=== PATIENT | female | born 1975 | race Caucasian/White ===

== ENCOUNTER → 2021-07-29 | Outpatient (CLI) | payer OTHER | LOC: RAD 12:03 | PROVIDERS: ATTEND Nurse Practitioner | DX: M25.762 Osteophyte, left knee (principal); M25.761 Osteophyte, right knee; M25.561 Pain in right knee; M25.562 Pain in left knee; G89.29 Other chronic pain; M25.462 Effusion, left knee; M25.461 Effusion, right knee ==

== ENCOUNTER 2021-11-07 20:09 | Emergency (ER) | payer OTHER ==
[~2021-11-07] VITALS: Ht 170.2 cm; Wt 145.2 kg
[2021-11-07 20:10] VITALS: BP 161/98
== END 2021-11-07 20:45 | disposition home or self-care (01) ==
LOC: ER 20:09
DX: S61.211A Laceration without foreign body of left index finger without damage to nail, initial encounter (principal); E11.9 Type 2 diabetes mellitus without complications; W26.0XXA Contact with knife, initial encounter; Y93.89 Activity, other specified; Y92.89 Other specified places as the place of occurrence of the external cause; Y99.8 Other external cause status